=== PATIENT | male | born 1950 | race Caucasian/White ===

== ENCOUNTER 2016-07-09 11:12 | Observation (INO) | payer BC ==
[~2016-07-09] VITALS: Ht 180.3 cm; Wt 77.7 kg
[2016-07-09] MEDS ORDERED: RAMIPRIL10 MG PO (12:44)
[2016-07-09] MEDS ORDERED: ATORVASTATIN CA20 MG PO (12:44)
[2016-07-09 12:59] LABS: HEMATOCRIT 43.8 % (38.0-50.0); MCH 29.9 PG (29.0-34.0); MCHC 33.6 G/DL (30.0-36.0); MEAN PLAT.VOLUME 9.8 uM^3 (9.0-12.4); PLATELET COUNT 221 K/uL (156-360); RBC DIS.WIDTH-CV 12.4 % (11.8-14.6); RBC DIS.WIDTH-SD 40.9 % (39-53); RED BLOOD COUNT 4.92 M/uL (4.00-5.50); WHITE BLOOD COUNT 8.3 K/uL (4.1-10.2)
[2016-07-09 13:11] LABS: CHLORIDE 106 mEq/L (99-109); POTASSIUM 4.5 mEq/L (3.7-5.4); SODIUM 141 mEq/L (136-147)
[2016-07-09 13:13] LABS: GLUCOSE 110 mg/dL (70-99); PROTHROMBIN TIME 10.4 (9.2-11.2); PTT 23.2 (25-32)
[2016-07-09 13:14] LABS: ANION GAP 9 MEQ/L (2-14)
[2016-07-09 13:17] LABS: GFR ESTIMATE (CALCULATED) > 59 mL/min/
[2016-07-09 13:18] LABS: UREA NITROGEN (BUN) 12 mg/dL (9-23)
[2016-07-09 13:58] LABS: Estimated Average Glucose 114 mg/dL (70-123); HEMOGLOBIN A1c (GLYCOHEMOGLOB) 5.6 % HGB (Below 5.7)
[2016-07-09 14:17] LABS: HDL CHOLESTEROL 33 MG/DL (Desirable>=40); LDL CHOLESTEROL 59 mg/dL (Desirable<100); NON-HDL CHOLESTEROL 103 mg/dL (Desirable<160); TOTAL CHOLESTEROL 136 mg/dL (Desirable<200); TRIGLYCERIDES 219 MG/DL (Normal: <150)
[2016-07-09] MEDS ORDERED: DAILY VALUE1 EACH PO (15:04)
[2016-07-09] MEDS ORDERED: PRESERVISIO1 CAPSULE PO (15:05)
[2016-07-09 16:40] LABS: TROP-I INTERPRETATION NEGATIVE; TROPONIN-I < 0.01 ng/mL (0.0-0.30)
[2016-07-09 18:34] VITALS: BP 160/87
[2016-07-09 22:56] LABS: TROP-I INTERPRETATION NEGATIVE; TROPONIN-I < 0.01 ng/mL (0.0-0.30)
[2016-07-09 23:22] VITALS: BP 144/75
[2016-07-10 04:18] VITALS: BP 141/76
[2016-07-10 05:34] LABS: TROP-I INTERPRETATION NEGATIVE; TROPONIN-I < 0.01 ng/mL (0.0-0.30)
[2016-07-10 08:25] VITALS: BP 130/83
[2016-07-10 12:21] VITALS: BP 129/75
[2016-07-12] MEDS ORDERED: LIPITOR10 MG PO (09:45)
[2016-07-12] MEDS ORDERED: DAILY VALUE1 EACH PO (09:46)
[2016-07-12] MEDS ORDERED: ALTACE10 MG PO (09:46)
[2016-07-12] MEDS ORDERED: PRESERVISIO1 CAPSULE PO (09:46)
== END 2016-07-10 14:00 | disposition left against medical advice (07) ==
LOC: EME 11:12 → EDOF 15:22 → 5SOUTH 15:22
PROVIDERS: Emergency Medicine; Internal Medicine
DX: R47.81 Slurred speech (principal); R47.1 Dysarthria and anarthria; E78.5 Hyperlipidemia, unspecified; E11.9 Type 2 diabetes mellitus without complications; I10 Essential (primary) hypertension; R13.10 Dysphagia, unspecified; R51 Headache
CPT/HCPCS: 70450; 70551; 71020; 80048; 80061; 83036; 84443; 84484; 85027; 85610; 85730; 87651 90; 93005; 93306; 93880; 99281; 99285; G0378; J1650; J7030

== ENCOUNTER → 2016-07-13 | Outpatient (CLI) | payer BC ==
[~2016-07-13] VITALS: Ht 180.3 cm; Wt 77.1 kg
[~2016-07-13] MED LIST: ALTACE10 MG PO; ATORVASTATIN CA20 MG PO; DAILY VALUE1 EACH PO; DELTASONE20 M1 PO; LIPITOR10 MG PO; PRESERVISIO1 CAPSULE PO; RAMIPRIL10 MG PO
[2016-07-13 11:56] LABS: POINT-OF-CARE METER ID UU13113694
[2016-07-13 13:35] LABS: POINT-OF-CARE METER ID UU13113819
== END | disposition home or self-care (01) ==
LOC: AMB 11:22
PROVIDERS: Internal Medicine
PROC: 0DJ08ZZ Inspection of Upper Intestinal Tract, Via Natural or Artificial Opening Endoscopic (ICD-10-PCS; principal; 2016-07-13)
DX: K44.9 Diaphragmatic hernia without obstruction or gangrene (principal); R13.10 Dysphagia, unspecified; H92.01 Otalgia, right ear; I10 Essential (primary) hypertension; R00.1 Bradycardia, unspecified; J39.2 Other diseases of pharynx; Z80.0 Family history of malignant neoplasm of digestive organs
CPT/HCPCS: 82948

== ENCOUNTER 2016-07-15 18:44 | Inpatient (IN) | payer BC ==
[~2016-07-15] VITALS: Ht 180.3 cm; Wt 89.0 kg
[~2016-07-15 18:44] MED LIST changes: -DELTASONE20 M1 PO
[2016-07-15 20:13] LABS: BASOPHIL COUNT 0.1 K/uL (0-0.1); EOSINOPHIL (%) 3.7 % (0-5); EOSINOPHIL COUNT 0.3 K/uL (0-0.3); HEMATOCRIT 42.9 % (38.0-50.0); IMMATURE GRANULOCYTE (%) 0.4 % (0.0-0.7); INSTRUMENT ABS NEUTROPHIL CT 3.8 K/uL; LYMPHOCYTE COUNT 2.2 K/uL (1.0-2.8); MCH 29.8 PG (29.0-34.0); MCHC 34.3 G/DL (30.0-36.0); MEAN PLAT.VOLUME 9.2 uM^3 (9.0-12.4); MONOCYTE (%) 7.6 % (3-12); MONOCYTE COUNT 0.5 K/uL (0-0.8); NEUTROPHIL (%) 54.7 % (45-76); NEUTROPHIL COUNT 3.8 K/uL (1.8-6.4); PLATELET COUNT 239 K/uL (156-360); RBC DIS.WIDTH-SD 38.6 % (39-53); RED BLOOD COUNT 4.93 M/uL (4.00-5.50)
[2016-07-15 20:23] LABS: CHLORIDE 104 mEq/L (99-109); POTASSIUM 4.2 mEq/L (3.7-5.4); SODIUM 140 mEq/L (136-147)
[2016-07-15 20:25] LABS: GLUCOSE 103 mg/dL (70-99)
[2016-07-15 20:26] LABS: ANION GAP 11 MEQ/L (2-14)
[2016-07-15 20:28] LABS: GFR ESTIMATE (CALCULATED) > 59 mL/min/
[2016-07-15 20:29] LABS: UREA NITROGEN (BUN) 11 mg/dL (9-23)
[2016-07-15 20:34] LABS: TROP-I INTERPRETATION NEGATIVE; TROPONIN-I < 0.01 ng/mL (0.0-0.30)
[2016-07-15 20:49] LABS: INTER. NORMALIZED RATIO 1.1; PROTHROMBIN TIME 10.9 (9.2-11.2); PTT 24.2 (25-32)
[2016-07-16 02:23] VITALS: BP 151/96
[2016-07-16 06:28] LABS: HEMATOCRIT 44.6 % (38.0-50.0); MCH 30.4 PG (29.0-34.0); MCHC 34.8 G/DL (30.0-36.0); MCV 87.5 FL (86-99); PLATELET COUNT 178 K/uL (156-360); RBC DIS.WIDTH-CV 12.1 % (11.8-14.6); RBC DIS.WIDTH-SD 39.1 % (39-53); WHITE BLOOD COUNT 7.9 K/uL (4.1-10.2)
[2016-07-16 06:39] LABS: MEAN PLAT.VOLUME 11.7 uM^3 (9.0-12.4)
[2016-07-16 07:35] LABS: HDL CHOLESTEROL 24 MG/DL (Desirable>=40); LDL CHOLESTEROL 85 mg/dL (Desirable<100); NON-HDL CHOLESTEROL 110 mg/dL (Desirable<160); TOTAL CHOLESTEROL 134 mg/dL (Desirable<200); TRIGLYCERIDES 123 MG/DL (Normal: <150)
[2016-07-16 07:37] LABS: ALKALINE PHOSPHATASE 83 IU/L (3-129); ANION GAP 12 MEQ/L (2-14); CHLORIDE 101 MEQ/L (99-109); GFR ESTIMATE (CALCULATED) > 59 mL/min/; GLUCOSE 119 mg/dL (70-99); POTASSIUM 4.5 MEQ/L (3.7-5.4); SAMPLE HEMOLYSIS CHECK 0; SAMPLE ICTERIC CHECK 0; SAMPLE LIPEMIA CHECK 0; SODIUM 140 MEQ/L (136-147); TOTAL BILIRUBIN 0.7 MG/DL (0.0-1.0); UREA NITROGEN (BUN) 14 mg/dL (9-23)
[2016-07-16 08:18] VITALS: BP 143/71
[2016-07-16 10:47] LABS: LYME DISEASE SEROLOGY SCREEN NEGATIVE (NEGATIVE)
[2016-07-16] MEDS ORDERED: DELTASONE20 M1 PO (10:47)
[2016-07-16 11:50] VITALS: BP 136/78
== END 2016-07-16 11:56 | disposition home or self-care (01) | DRG 74 ==
LOC: EME 18:44 → 5SOUTH 23:00 → EDOF 23:00 → 5SOUTH 23:28
PROVIDERS: Emergency Medicine; Family Medicine
PROC: 0DJ08ZZ Inspection of Upper Intestinal Tract, Via Natural or Artificial Opening Endoscopic (ICD-10-PCS; principal; 2016-07-13)
DX: G51.0 Bell's palsy (principal); I10 Essential (primary) hypertension; E11.9 Type 2 diabetes mellitus without complications; E78.5 Hyperlipidemia, unspecified; H40.9 Unspecified glaucoma
CPT/HCPCS: 70450; 70496; 70498; 71010; 80048; 80053; 80061; 81003; 82607; 82948; 84443; 84484; 85025; 85027; 85610; 85730; 86038; 86618; 93005; 99281; 99285; G0378; J2930